=== PATIENT | female | born 1980 | race Caucasian/White ===

== ENCOUNTER 2017-04-04 12:20 | Observation (INO) | payer OTHER ==
[2017-04-04 14:04] LABS: HEMOGLOBIN 12.1 gm/dl (12.3-15.3); RED BLOOD COUNT 4.12 M/UL (4.00-5.10); WHITE BLOOD COUNT 7.1 K/UL (4.5-11.0)
[2017-04-05 17:29] LABS: URINE TOTAL PROTEIN 12 mg/dl
== END 2017-04-05 18:49 | disposition home or self-care (01) ==
LOC: GENOP 12:20 → OB 04-05 00:01
PROVIDERS: Obstetrics & Gynecology; ADMIT Obstetrics & Gynecology
DX: O24.410 Gestational diabetes mellitus in pregnancy, diet controlled (principal); O41.03X0 Oligohydramnios, third trimester, not applicable or unspecified; O47.03 False labor before 37 completed weeks of gestation, third trimester; O99.283 Endocrine, nutritional and metabolic diseases complicating pregnancy, third trimester; E03.9 Hypothyroidism, unspecified; Z3A.36 36 weeks gestation of pregnancy; Z79.84 Long term (current) use of oral hypoglycemic drugs; Z90.49 Acquired absence of other specified parts of digestive tract
CPT/HCPCS: 36415; 76815; 81001; 82248; 82565; 82962; 83518; 84156; 84450; 84460; 84550; 85025; 85379; 85384; 85610; 85730; 96360; 96361; G0378; J7030; J7120